=== PATIENT | female | born 1990 | race Caucasian/White ===

== ENCOUNTER 2016-07-07 14:37 | Emergency (ER) | payer OTHER ==
--- NOTE | 2016-07-07 15:03 | EDPHY ---
H & P Time Seen by Provider: 07/07/16 14:48 HPI/ROS: CHIEF COMPLAINT: suicidal statement last evening while intoxicated HISTORY OF PRESENT ILLNESS: 25-year-old female arrives via private vehicle states that last evening she was drinking heavy amounts of alcohol after breaking up with her boyfriend and made a statement to a family member stating that she was going to kill herself. Her last drink of alcohol was greater than 12 hours ago. States that she went to see her therapist today and therapist recommend she come to the emergency department for evaluation. Patient states that she is feeling sad but in no way is experiencing thoughts of suicide or homicide, is not experiencing thoughts of self-injury. States that she would like to go home. She is not on a mental health hold. PHYSICAL EXAM (Prior to examination, patient consented to physical exam, hands were washed and my usual and customary physical exam procedures followed) 1) GENERAL: Well-developed, well-nourished, alert and oriented to person place time events. Appears to be in no physical distress. 2) HEAD: Normocephalic 3) HEENT: sclera anicteric 4) LUNGS: Breathing comfortably. Smoking Status: Never smoked Constitutional: Initial Vital Signs Temperature (C) 36.7 C 07/07/16 14:40 Heart Rate 76 07/07/16 14:40 Respiratory Rate 16 07/07/16 14:40 Blood Pressure 129/86 H 07/07/16 14:40 O2 Sat (%) 98 07/07/16 14:40 O2 Delivery Mode Room Air,Oxymask Allergies/Adverse Reactions: No Known Allergies Allergy (Unverified 07/07/16 14:56) Home Medications: Medication Instructions Recorded FLUoxetine [PROzac] 10 mg PO 07/07/16 lamoTRIgine [LamICTAL 100 MG (*)] 100 mg PO 07/07/16 MDM/Departure - MDM ED Course/Re-evaluation: The patient is alert oriented person place time events, she has no signs of altered mental status or intoxication, does not endorse current thoughts of suicidal homicidal ideation. The patient does not meet criteria for a mental health hold at this time. She would like to be discharged and go home. Recommend she follow up with therapist tomorrow and given strict return precautions instructions, namely should she develop thoughts of hurting herself or others she needs to call 911 immediately. Recommend alcohol moderation. - Depart Disposition: Home, Routine, Self-Care Clinical Impression: Sad Condition: Good Instructions: Depression (ED) Additional Instructions: Call 911 if you develop thoughts of hurting or killing herself or hurting or killing anybody else. Please exercise moderation with alcohol use Referrals: Follow-up, with your therapist tomorrow [Other] - 07/08/16
[2016-07-07 15:14] VITALS: BP 131/67; PULSE 81; RESP 18; TEMP 98.6; O2SAT 95
== END 2016-07-07 15:14 | disposition home or self-care (01) ==
DX: R45.89 Other symptoms and signs involving emotional state (principal)